=== PATIENT | female | born 1985 | race Hispanic/Latino ===

== ENCOUNTER 2018-02-12 13:41 | Emergency (ER) | payer BC ==
[2018-02-12] MEDS ORDERED: Sodium Chloride 0.9% 1,000 ML IV STA (14:40)
--- NOTE | 2018-02-12 14:49 | ED PDOC ---
HPI: Psych/Substance Abuse Time Seen by Provider: 02/12/18 14:14 Chief Complaint (Nursing): Alcohol Ingestion Chief Complaint (Provider): Alcohol Abuse History Per: Patient History/Exam Limitations: no limitations Onset/Duration Of Symptoms: Days (x3 months) Additional Complaint(s): 32 year old female presents to the ED for evaluation of "feeling shaky" s/p drinking 4-5 vodka sodas every night for the past three months. Her PMD recently informed her that her blood work showed low platelets secondary to her alcohol use. Patient states her last drink was yesterday, and today at 1600 she has a rehab appointment. She additionally reports that she ran out of her Xanax and her PMD will not be back in the office for the next two days. PMD: [facility] Past Medical History Reviewed: Historical Data, Nursing Documentation, Vital Signs Vital Signs: Last Vital Signs Temp 97.8 F 02/12/18 13:49 Pulse 104 H 02/12/18 13:49 Resp 20 02/12/18 13:49 BP 153/91 H 02/12/18 13:49 Pulse Ox 97 02/12/18 13:49 - Medical History PMH: Anxiety - Surgical History Surgical History: No Surg Hx - Family History Family History: States: Unknown Family Hx - Social History Current smoker - smoking cessation education provided: No Alcohol: > 2 Drinks/Day Drugs: Denies - Home Medications Home Medications: Ambulatory Orders Medication Instructions Recorded Ibuprofen [Motrin Tab] 600 mg PO Q6 PRN #15 tab 03/26/16 - Allergies Allergies/Adverse Reactions: Allergies Allergy/AdvReac Type Severity Reaction Status Date / Time No Known Allergies Allergy Verified 03/26/16 10:26 Review of Systems ROS Statement: Except As Marked, All Systems Reviewed And Found Negative Neurological: Positive for: Other ("feeling shaky") Psych: Positive for: Other (alcohol abuse) Physical Exam - Reviewed Nursing Documentation Reviewed: Yes Vital Signs Reviewed: Yes - Physical Exam Appears: Positive for: No Acute Distress Head Exam: Positive for: ATRAUMATIC, NORMOCEPHALIC Skin: Positive for: Normal Color, Warm, Dry Eye Exam: Positive for: Normal appearance, EOMI, PERRL ENT: Positive for: Normal ENT Inspection Neck: Positive for: Normal, Painless ROM, Supple Cardiovascular/Chest: Positive for: Regular Rate, Rhythm Respiratory: Positive for: Normal Breath Sounds. Negative for: Respiratory Distress Gastrointestinal/Abdominal: Positive for: Normal Exam, Soft. Negative for: Tenderness Back: Positive for: Normal Inspection Extremity: Positive for: Normal ROM Neurologic/Psych: Positive for: Alert, Oriented (x3), Gait (steady, unassissted). Negative for: Motor/Sensory Deficits - ECG O2 Sat by Pulse Oximetry: 97 (RA) Pulse Ox Interpretation: Normal Medical Decision Making Medical Decision Making: Time: 1440 Initial Impression: alcohol abuse Initial Plan: --Alcohol serum --Drug screen --U-preg --CBC with differential --Ativan 2mg IVP --IV fluids --Urinalysis CIWA score: 2 Scribe Attestation: Documented by Denise Vaughan, acting as a scribe for Jasmin Arteaga MD. Provider Scribe Attestation: All medical record entries made by the Scribe were at my direction and personally dictated by me. I have reviewed the chart and agree that the record accurately reflects my personal performance of the history, physical exam, medical decision making, and the department course for this patient. I have also personally directed, reviewed, and agree with the discharge instructions and disposition. Disposition - Disposition
[2018-02-12 15:12] LABS: BASO % 0.5 % (0.0-2.0); EOS % 0.1 % (0.0-4.0); HEMOGLOBIN 11.7 g/dL (12.0-16.0); LYMPH % 23.1 % (20.0-40.0); MEAN CELL VOLUME 112.3 fl (81.0-99.0); MEAN CORPUSCULAR HEMOGLOBIN 37.1 pg (27.0-31.0); MEAN PLATELET VOLUME 7.8 fl (7.2-11.7); MONO # 0.5 K/uL (0.0-0.8); MONO % 12.7 % (0.0-10.0); NEUT # 2.8 K/uL (1.8-7.0); NEUT % 63.6 % (50.0-75.0); NRBC % 0.3 % (0.0-0.0); RBC 3.16 Mil/uL (3.80-5.20); RED CELL DISTRIBUTION WIDTH 15.6 % (11.5-14.5); WHITE BLOOD COUNT 4.3 K/uL (4.8-10.8)
[2018-02-12 15:22] LABS: ALB/GLOB RATIO 1.2 (1.0-2.1); ALBUMIN 4.5 g/dL (3.5-5.0); ALT/SGPT 89 U/L (9-52); AST/SGOT 137 U/L (14-36); BLOOD UREA NITROGEN 4 mg/dl (7-17); CALCIUM 9.3 mg/dL (8.4-10.2); GFR NON-AFRICAN AMERICAN > 60
[2018-02-12] MEDS ORDERED: Potassium Chloride 20 mEq ER Tab PO STA (15:45)
[2018-02-12] MEDS ORDERED: Potassium Chloride 20 mEq ER Tab PO ONE (15:53)
[2018-02-12] MEDS ORDERED: Multivitamin (MVI) 10 ML, Thiamine 100 MG, Folic Acid 1 MG in Sodium Chloride 0.9% 1,00... IV ONE (16:03)
--- NOTE | 2018-02-12 19:50 | ED PDOC ---
- Laboratory Results Result Diagrams: 02/12/18 15:00 02/12/18 15:00 - ECG O2 Sat by Pulse Oximetry: 97 (RA) Medical Decision Making Medical Decision Makin: Patient care endorsed to this provider from Dr. Arteaga pending crisis evaluation and reevalutation. 2149 Patient evaluated by crisis and stable for discharge with diagnosis of alcohol dependency and anxiety. Patient commits to following up with her PMD and has an established appointment. Scribe Attestation: Documented by Denise Vaughan, acting as a scribe for Herman Hewitt MD. Provider Scribe Attestation: All medical record entries made by the Scribe were at my direction and personally dictated by me. I have reviewed the chart and agree that the record accurately reflects my personal performance of the history, physical exam, medic al decision making, and the department course for this patient. I have also personally directed, reviewed, and agree with the discharge instructions and disposition. Disposition Counseled Patient/Family Regarding: Diagnosis, Need For Followup - Clinical Impression Clinical Impression: Alcohol dependence, Anxiety - POA Present On Arrival: None - Disposition Disposition: Routine/Home Disposition Time: 21:54 Condition: STABLE Prescriptions: Alprazolam [Xanax] 0.5 mg PO QAM PRN #5 tab PRN Reason: Anxiety Instructions: Alcohol Use - When Is Drinking a Problem?, Anxiety, Adult (DC) Forms: [employer] ([place])
[2018-02-12 20:35] LABS: SQUAMOUS EPITHIAL < 1 /hpf (0-5); URINE BACTERIA RARE (<OCC); URINE BILIRUBIN NEGATIVE (NEGATIVE); URINE BLOOD NEGATIVE (NEGATIVE); URINE CLARITY CLEAR (Clear); URINE COLOR YELLOW (YELLOW); URINE GLUCOSE (UA) NEG (NEGATIVE); URINE LEUKOCYTE ESTERASE NEG Leu/uL (Negative); URINE PROTEIN NEGATIVE (NEGATIVE); URINE UROBILINOGEN 0.2-1.0 mg/dL (0.2-1.0)
[2018-02-12 20:57] LABS: BENZODIAZEPINES, UR POSITIVE (NEGATIVE); OPIATES, UR NEGATIVE (NEGATIVE); PHENCYCLIDINE, UR NEGATIVE (NEGATIVE)
[2018-02-12 21:16] LABS: BARBITURATES, UR NEGATIVE (NEGATIVE)
[2018-02-12 22:01] VITALS: BP 134/81; PULSE 89; RESP 18; TEMP 98.2; O2SAT 100
== END 2018-02-12 22:06 | disposition home or self-care (01) ==
LOC: H.ER 13:41
DX: F10.20 Alcohol dependence, uncomplicated (principal); F41.9 Anxiety disorder, unspecified
CPT/HCPCS: 80053; 81003; 81025; 85025; 96361; 96365; 96366; 96375; 99283; G0480; J2060; J3411; J7030